=== PATIENT | male | born 1950 | race Caucasian/White ===

== ENCOUNTER 2025-05-12 14:33 | Emergency (ER) | payer MEDICARE, OTHER ==
[2025-05-12 14:40] VITALS: RESP 18; TEMP 97.9
--- NOTE | 2025-05-12 15:50 | ED ---
General Adult HPI - General Chief complaint: Recheck/Abnormal Lab/Rx Stated complaint: Abn labs Time Seen by Provider: 05/12/25 15:04 Source: patient, RN notes reviewed, old records reviewed Mode of arrival: ambulatory Limitations: no limitations - History of Present Illness Initial comments: 75-year-old male presenting for evaluation of bilateral leg swelling which has been an ongoing issue for some time. Patient had requested an EKG at outpatient clinic and was noted to have a left bundle branch block with no prior history. He was sent to the emergency department. He states he went swimming this morning and felt quite good. No chest pain or dyspnea. He denies prior history of cardiac disease. He does note intermittent bilateral lower leg swelling - Related Data Allergies Allergy/AdvReac Type Severity Reaction Status Date / Time No Known Allergies Allergy Verified 05/12/25 14:40 Review of Systems ROS Statement: Those systems with pertinent positive or pertinent negative responses have been documented in the HPI. ROS Other: All systems not noted in ROS Statement are negative. Past Medical History Additional Past Medical History / Comment(s): skin cancer, Additional Past Surgical History / Comment(s): right hip replacement, Past Psychological History: PTSD Smoking Status: Never smoker Past Alcohol Use History: Daily Past Drug Use History: Marijuana General Exam Limitations: no limitations Course Vital Signs 05/12/25 14:35 Temperature 97.9 F Pulse Rate 68 Respiratory 18 Rate Blood Pressure 155/81 O2 Sat by Pulse 97 Oximetry Medical Decision Making - Medical Decision Making Was pt. sent in by a medical professional or institution (, PA, BUILDING COORDINATOR, urgent care, hospital, or senior care...) When possible be specific @ -No Did you speak to anyone other than the patient for history (EMS, parent, family, police, friend...)? What history was obtained from this source @ -No Did you review nursing and triage notes (agree or disagree)? Why? @ -I reviewed and agree with nursing and triage notes Were old charts reviewed (outside hosp., previous admission, EMS record, old EKG, old radiological studies, urgent care reports/EKG's, senior care records)? Report findings @ -No old charts were reviewed Differential Diagnosis (chest pain, altered mental status, abdominal pain women, abdominal pain men, vaginal bleeding, weakness, fever, dyspnea, syncope, headache, dizziness, GI bleed, back pain, seizure, CVA, palpatations, mental health, musculoskeletal)? @ -Not applicable EKG interpreted by me (3pts min.). @ -[Sinus rhythm with left bundle branch block rate of 64, NJ interval 170, QRS duration 145, QTc 458 no old for comparison X-rays interpreted by me (1pt min.). @Chest x-ray clear, no acute cardiopulmonary findings, no signs of CHF. CT interpreted by me (1pt min.). @ -None done U/S interpreted by me (1pt. min.). @ -None done What testing was considered but not performed or refused? (CT, X-rays, U/S, labs)? Why? @ -None What meds were considered but not given or refused? Why? @ -None Did you discuss the management of the patient with other professionals (pro fessionals i.e. , PA, BUILDING COORDINATOR, lab, RT, psych nurse, social service agency director, subway guard, teacher, special assets officer, case finisher)? Give summary @ -No Was smoking cessation discussed for >3mins.? @ -No Was critical care preformed (if so, how long)? @ -No Were there social determinants of health that impacted care today? How? (Homelessness, low income, unemployed, alcoholism, drug addiction, transportation, low edu. Level, literacy, decrease access to med. care, intermediate, rehab)? @ -No Was there de-escalation of care discussed even if they declined (Discuss DNR or withdrawal of care, Hospice)? DNR status @ -No What co-morbidities impacted this encounter? (DM, HTN, Smoking, COPD, CAD, Cancer, CVA, ARF, Chemo, Hep., AIDS, mental health diagnosis, sleep apnea, morbid obesity)? @ -None Was patient admitted / discharged? Hospital course, mention meds given and route, prescriptions, significant lab abnormalities, going to OR and other pertinent info. @ -75-year-old male sent in with left bundle with no prior history. No chest pain no dyspnea. Patient well-appearing. Patient states he has been on Lasix for the past 10 days due to due to some peripheral edema. He states that he went swimming today this morning and swims every single morning without chest pain or dyspnea. Patient has EKG showing left bundle branch block no old for comparison. Normal CBC, normal CMP, negative troponin, negative BNP. Vital signs are stable. I do feel this patient would benefit from an echo. And he will be given cardiology follow-up. Undiagnosed new problem with uncertain prognosis? @ -No Drug Therapy requiring intensive monitoring for toxicity (Heparin, Nitro, Insulin, Cardizem)? @ -No Were any procedures done? @ -No Diagnosis/symptom? @ -[Left bundle branch block. Acute, or Chronic, or Acute on Chronic? @Acute Uncomplicated (without systemic symptoms) or Complicated (systemic symptoms)? @ -Default Side effects of treatment? @ -No Exacerbation, Progression, or Severe Exacerbation? @ -No Poses a threat to life or bodily function? How? (Chest pain, USA, LA, pneumonia, PE, COPD, DKA, ARF, appy, cholecystitis, CVA, Diverticulitis, Homicidal, Suicidal, threat to staff... and all critical care pts) @ -No - Lab Data Result diagrams: 05/12/25 16:41 05/12/25 16:41 Lab Results 05/12/25 05/12/25 05/12/25 Range/Units 16:41 16:41 16:41 WBC 6.51 (4.50-10.00) 10*3/uL RBC 4.34 L (4.40-5.60) 10*6/uL Hgb 14.4 (13.0-17.0) g/dL Hct 41.0 (39.6-50.0) % MCV 94.5 (80.0-97.0) fL MCH 33.2 H (27.0-32.0) pg MCHC 35.1 (32.0-37.0) g/dL Plt Count 172 (140-440) 10*3/uL MPV 11.7 (9.5-12.2) fL Immature Gran % (Auto) 0.2 % Neutrophils % 54.1 % Lymphocytes % 32.0 % Monocytes % 10.3 % Eosinophils % 2.5 % Basophils % 0.9 % Immature Gran # 0.01 (0.00-0.04) 10*3/uL Neutrophils # 3.53 (1.80-7.70) 10*3/uL Lymphocytes # 2.08 (0.90-5.00) 10*3/uL Monocytes # 0.67 (0.20-1.00) 10*3/uL Eosinophils # 0.16 (0.04-0.35) 10*3/uL Basophils # 0.06 (0.00-0.10) 10*3/uL PT 11.1 (10.0-12.5) sec INR 1.0 (<1.2) APTT 20.5 L (22.0-30.0) sec Sodium 139 (137-145) mmol/L Potassium 4.4 (3.5-5.1) mmol/L Chloride 106 (98-107) mmol/L Carbon Dioxide 27 (22-30) mmol/L Anion Gap 6 mmol/L BUN 22 H (9-20) mg/dL Creatinine 0.99 (0.66-1.25) mg/dL Est GFR (CKD-EPI)AfAm 87 (>60 ml/min/1.73 sqM) Est GFR (CKD-EPI)NonAf 75 (>60 ml/min/1.73 sqM) Glucose 119 H (74-99) mg/dL Calcium 9.5 (8.4-10.2) mg/dL Magnesium 2.1 (1.6-2.3) mg/dL Total Bilirubin 0.8 (0.2-1.3) mg/dL AST 29 (17-59) U/L ALT 24 (4-49) U/L Alkaline Phosphatase 81 (38-126) U/L Troponin I (0.000-0.034) ng/mL NT-Pro-B Natriuret Pep 118 pg/mL Total Protein 6.9 (6.3-8.2) g/dL Albumin 4.4 (3.5-5.0) g/dL 05/12/25 Range/Units 16:41 WBC (4.50-10.00) 10*3/uL RBC (4.40-5.60) 10*6/uL Hgb (13.0-17.0) g/dL Hct (39.6-50.0) % MCV (80.0-97.0) fL MCH (27.0-32.0) pg MCHC (32.0-37.0) g/dL Plt Count (140-440) 10*3/uL MPV (9.5-12.2) fL Immature Gran % (Auto) % Neutrophils % % Lymphocytes % % Monocytes % % Eosinophils % % Basophils % % Immature Gran # (0.00-0.04) 10*3/uL Neutrophils # (1.80-7.70) 10*3/uL Lymphocytes # (0.90-5.00) 10*3/uL Monocytes # (0.20-1.00) 10*3/uL Eosinophils # (0.04-0.35) 10*3/uL Basophils # (0.00-0.10) 10*3/uL PT (10.0-12.5) sec INR (<1.2) APTT (22.0-30.0) sec Sodium (137-145) mmol/L Potassium (3.5-5.1) mmol/L Chloride (98-107) mmol/L Carbon Dioxide (22-30) mmol/L Anion Gap mmol/L BUN (9-20) mg/dL Creatinine (0.66-1.25) mg/dL Est GFR (CKD-EPI)AfAm (>60 ml/min/1.73 sqM) Est GFR (CKD-EPI)NonAf (>60 ml/min/1.73 sqM) Glucose (74-99) mg/dL Calcium (8.4-10.2) mg/dL Magnesium (1.6-2.3) mg/dL Total Bilirubin (0.2-1.3) mg/dL AST (17-59) U/L ALT (4-49) U/L Alkaline Phosphatase (38-126) U/L Troponin I <0.012 (0.000-0.034) ng/mL NT-Pro-B Natriuret Pep pg/mL Total Protein (6.3-8.2) g/dL Albumin (3.5-5.0) g/dL Disposition Clinical Impression: Left bundle branch block (LBBB) Disposition: HOME SELF-CARE Condition: Fair Additional Instructions: Left bundle branch block Is patient prescribed a controlled substance at d/c from ED?: No Referrals: Nonstaff,Physician [Primary Care Provider] - 1-2 days Livan Rosales DO [STAFF PHYSICIAN] - 1-2 days Time of Disposition: 17:39
--- NOTE | 2025-05-12 16:35 | XR ---
EXAMINATION TYPE: XR chest 2V DATE OF EXAM: 05/12/2025 4:25 PM COMPARISON: None. CLINICAL INDICATION: Male, 75 years old with history of abnormal EKG, TECHNIQUE: XR chest 2V view(s) obtained. FINDINGS: The heart size is normal. The pulmonary vasculature is normal. The lungs are clear. IMPRESSION: 1. No acute pulmonary process. [facility], , 05/12/2025 4:33 PM
[2025-05-12 16:52] LABS: HCT 41.0 % (39.6-50.0); HGB 14.4 g/dL (13.0-17.0); MCH 33.2 pg (27.0-32.0); MCHC 35.1 g/dL (32.0-37.0); MCV 94.5 fL (80.0-97.0); Platelet Count 172 10*3/uL (140-440); RBC 4.34 10*6/uL (4.40-5.60); RDW 11.4 % (11.5-14.5); WBC 6.51 10*3/uL (4.50-10.00)
[2025-05-12 16:53] LABS: Basophils # (A) 0.06 10*3/uL (0.00-0.10); Basophils % (A) 0.9 %; Eosinophils # (A) 0.16 10*3/uL (0.04-0.35); Eosinophils % (A) 2.5 %; Lymphocytes # (A) 2.08 10*3/uL (0.90-5.00); Lymphocytes % (A) 32.0 %; Monocytes # (A) 0.67 10*3/uL (0.20-1.00); Monocytes % (A) 10.3 %; Neutrophils # (A) 3.53 10*3/uL (1.80-7.70); Neutrophils % (A) 54.1 %
[2025-05-12 17:05] LABS: ALT 24 U/L (4-49); AST 29 U/L (17-59); African American GFR (CKD) 87 (>60 ml/min/1.73 sqM); Albumin 4.4 g/dL (3.5-5.0); Alkaline Phosphatase 81 U/L (38-126); Anion Gap 6 mmol/L; Blood Urea Nitrogen 22 mg/dL (9-20); Calcium 9.5 mg/dL (8.4-10.2); Carbon Dioxide 27 mmol/L (22-30); Chloride 106 mmol/L (98-107); Glucose 119 mg/dL (74-99); Magnesium 2.1 mg/dL (1.6-2.3); Non-African American GFR(CKD) 75 (>60 ml/min/1.73 sqM); Potassium 4.4 mmol/L (3.5-5.1); Sodium 139 mmol/L (137-145); Total Protein 6.9 g/dL (6.3-8.2)
[2025-05-12 17:14] LABS: NT-Pro-B-Type Natriuretic Pept 118 pg/mL
[2025-05-12 17:21] LABS: INR 1.0 (<1.2); Prothrombin Time 11.1 sec (10.0-12.5)
[2025-05-12 17:25] LABS: Partial Thromboplastin Time 20.5 sec (22.0-30.0)
[2025-05-12 17:55] VITALS: BP 145/85; PULSE 80
== END 2025-05-12 17:55 | disposition home or self-care (01) ==
LOC: EC 14:33
DX: I44.7 Left bundle-branch block, unspecified (principal)
CPT/HCPCS: 36415; 71046; 80053; 83735; 83880; 84484; 85025; 85610; 85730; 93005; 99284